=== PATIENT | female | born 1945 | race Caucasian/White ===

== ENCOUNTER 2017-10-31 18:57 | Emergency (ER) | payer MEDICARE, BC ==
[~2017-10-31 18:57] MED LIST: Iopamidol 370 76% 100 ML VIAL ONE
[2017-10-31] MEDS ORDERED: Ondansetron HCl/PF 4 MG/2 ML Vial ONE (19:38)
[2017-10-31 19:45] LABS: #Basophils 0.1 thou/uL (0.0-0.2); #Lymphocytes 1.7 thou/uL (1.20-3.40); #Neutrophils 7.3 thou/uL (1.40-6.50); %Basophils 0.8 % (0.0-1.0); %Eosinophils 0.2 % (0.0-10.0); %Lymphocytes 16.7 % (21.0-51.0); %Monocytes 9.5 % (0.0-10.0); %Neutrophils 72.8 % (42.0-75.0); Hemoglobin 14.4 g/dL (12.0-16.0); Mean Corpuscular HGB CONC 35.3 g/dL (32.0-36.0); Mean Corpuscular Hemoglobin 33.9 pg (27.0-31.0); Mean Platelet Volume 9.3 fL (7.4-10.4); Platelet Count 196 thou/uL (130-400); RBC Distribution Width 11.2 % (11.5-14.5); Red Blood Cell (RBC) Count 4.23 mill/uL (4.20-5.40)
[2017-10-31 19:47] LABS: Bilirubin Negative (Negative); Blood, Urine Negative (Negative); Clarity Hazy (Clear); Glucose, Urine (Dipstick) Negative (Negative); Leukocyte Trace (Negative); Nitrite Negative (Negative); Protein, Urine (Dipstick) Negative (Neg-Trace); Specific Gravity, Urine 1.008 (1.002-1.036); Urobilinogen 0.2 mg/dL (0.2-1.0)
[2017-10-31 19:55] LABS: Bacteria/HPF 1+ HPF (None Seen); RBC/HPF None Seen HPF (0-3); WBC/HPF 0-3 HPF (0-3)
[2017-10-31 19:58] LABS: ALT (SGPT) 24 U/L (8-55); AST (SGOT) 25 U/L (5-34); Alkaline Phosphatase 65 U/L (40-150); Anion Gap 15 mmol/L (10-20); BUN (Urea Nitrogen) 11 mg/dL (9.8-20.1); Bilirubin, Total 0.7 mg/dL (0.2-1.2); Calc. Creatinine Clearance 0 mL/min (70-130); Calcium 9.6 mg/dL (7.8-10.44); Carbon Dioxide 25 mmol/L (23-31); Chloride 102 mmol/L (98-107); Estimated GFR-MDRD 85; Globulin 2.6 g/dL (2.4-3.5); Glucose 114 mg/dL (83-110); Lipase 21 U/L (8-78); Potassium 3.6 mmol/L (3.5-5.1); Protein, Total 6.6 g/dL (6.0-8.3); Sodium 138 mmol/L (136-145)
--- NOTE | 2017-10-31 20:55 | CT ---
CONTRAST ENHANCED CT IMAGES ABDOMEN AND PELVIS 10/31/17 Comparison made to previous exam from 07/14/16. Noncontrast enhanced CT images of the abdomen and pelvis demonstrate the lung bases to be unremarkabl e. A small granuloma is seen in the right middle lobe. No evidence of free intraperitoneal air seen. The liver contains a cyst in the left hepatic lobe. Additional medial left hepatic lobe cyst also see n. These are unchanged since the previous exam. The spleen contains a small splenic cyst. This is also stable. The stomach is unremarkable. The pancr eas is unremarkable. The gallbladder has been surgically removed. Adrenal glands and kidneys are unre markable. No dilated loops of small bowel seen. There is an approximately 6.1 cm area of abnormal thickening with surrounding inflammatory change in the sigmoid colon. This is compatible with possible sigmoid colonic mass versus area of diverticulit is and secondary bowel thickening and inflammatory change. This appears to have been present on the p rashid's previous CT from 07/14/16 but was slightly longer in length. Correlate with direct visualizati on. IMPRESSION: Segmental areas of sigmoid colonic thickening. Differential diagnosis includes diverticulitis and sec ondary pericolonic fat stranding versus sigmoid colonic malignancy. POS: [facility]
[2017-10-31] MEDS ORDERED: Acetaminophen 500 MG TAB ONE (21:05)
== END 2017-10-31 21:10 | disposition home or self-care (01) ==
LOC: SCSER 18:57
DX: K57.32 Diverticulitis of large intestine without perforation or abscess without bleeding (principal); I10 Essential (primary) hypertension
CPT/HCPCS: 74177; 80053; 81003; 81015; 83690; 85025; 96374; J2405

== ENCOUNTER 2018-08-23 09:53 | Outpatient (CLI) | payer MEDICARE, BC ==
--- NOTE | 2018-08-23 10:37 | ULT ---
US Thyroid STANDARD HISTORY: Thyroid nodule COMPARISON: 07/02/2017 exam. FINDINGS: Real-time imaging of the right and left lobes of the gland were performed. The right lobe m easures 1.6 x 1.7 x 3.5 cm. The left lobe measures 1.1 x 1.2 x 2.9 cm. Bilateral subcentimeter thyroid nodules are identified. The 2 largest on the right are cystic lesions involving the mid and lower pole region of the right lobe measuring in the 7 to 8 mm range and on the left side there is a 7 mm solid hypoechoic nodule which appears stable as compared to the previou s exam. IMPRESSION: Small thyroid nodules stable.
== END 2018-08-23 09:54 | disposition home or self-care (01) ==
LOC: SCSULT 09:53
PROVIDERS: ATTEND Specialist
DX: E04.2 Nontoxic multinodular goiter (principal)
CPT/HCPCS: 76536

== ENCOUNTER 2018-10-15 08:39 | Emergency (ER) | payer MEDICARE, BC ==
[2018-10-15] MEDS ORDERED: Iopamidol 370 76% 100 ML VIAL ONE (09:00)
[2018-10-15] MEDS ORDERED: Nitroglycerin 2% Ointment 1 INCH/1 GM Packet ONE (09:15)
[2018-10-15 09:19] LABS: #Lymphocytes 1.2 thou/uL (1.20-3.40); #Monocytes 0.7 thou/uL (0.11-0.59); #Neutrophils 6.3 thou/uL (1.40-6.50); %Basophils 0.6 % (0.0-1.0); %Eosinophils 0.4 % (0.0-10.0); %Lymphocytes 14.4 % (21.0-51.0); %Monocytes 8.1 % (0.0-10.0); %Neutrophils 76.5 % (42.0-75.0); Hemoglobin 16.4 g/dL (12.0-16.0); Mean Corpuscular Hemoglobin 32.5 pg (27.0-31.0); Mean Corpuscular Volume 98.3 fL (78.0-98.0); Mean Platelet Volume 8.4 fL (7.4-10.4); Platelet Count 281 thou/uL (130-400); RBC Distribution Width 11.6 % (11.5-14.5); Red Blood Cell (RBC) Count 5.05 mill/uL (4.20-5.40); White Blood Cell (WBC) Count 8.2 thou/uL (4.8-10.8)
[2018-10-15 09:39] LABS: ALT (SGPT) 20 U/L (8-55); AST (SGOT) 27 U/L (5-34); Albumin 4.2 g/dL (3.4-4.8); Alkaline Phosphatase 55 U/L (40-150); Anion Gap 17 mmol/L (10-20); BUN (Urea Nitrogen) 7 mg/dL (9.8-20.1); Bilirubin, Total 0.8 mg/dL (0.2-1.2); CK (CPK) 79 U/L (29-168); Calc. Creatinine Clearance 0 mL/min (70-130); Calcium 10.1 mg/dL (7.8-10.44); Carbon Dioxide 24 mmol/L (23-31); Chloride 103 mmol/L (98-107); Estimated GFR-MDRD 82; Globulin 2.9 g/dL (2.4-3.5); Glucose 108 mg/dL (83-110); Potassium 3.6 mmol/L (3.5-5.1); Protein, Total 7.1 g/dL (6.0-8.3); Sodium 140 mmol/L (136-145)
[2018-10-15] MEDS ORDERED: Ketorolac Tromethamine 30 MG/ML VIAL ONE (11:01)
--- NOTE | 2018-10-15 11:15 | CT ---
CTA CHEST WITH IV CONTRAST AND 3D POSTPROCESSING CTA ABDOMEN WITH IV CONTRAST AND 3D POSTPROCESSING CTA PELVIS WITH IV CONTRAST AND 3D POSTPROCESSING CT CHEST WITHOUT IV CONTRAST CT ABDOMEN WITHOUT IV CONTRAST: HISTORY: Chest pain. FINDINGS: There are vascular calcifications without evidence of aneurysmal dilatation of the thoracoabdominal a lavern. The aorta is well opacified without aneurysm or dissection. The SMA, WILFREDO, celiac axis, and angelina l arteries demonstrate good flow. There is mild stenosis at the origin of the left renal artery. No pleural or pericardial effusions seen. No pneumothoraces or focal areas of consolidation identifie d. There is a calcified granuloma in the right lower lobe. No free air or free fluid seen in the abdomen or pelvis. There are cysts in the liver measuring 2.3 a nd 1.4 cm, respectively. The pancreas, adrenal glands, and kidneys are normal. There are calcified gr anulomas in the spleen. The patient is post cholecystectomy. The small bowel loops are not abnormally dilated. The patient appears to be post hysterectomy. There is colonic diverticulosis without divert iculitis. There are degenerative changes in the thoracolumbar spine. IMPRESSION: 1. No evidence of aortic aneurysm or dissection. 2. Hepatic cysts. 3. Colonic diverticulosis. 4. Old granulomatous disease. POS: [facility]
== END 2018-10-15 11:08 | disposition home or self-care (01) ==
LOC: SCSER 08:39
DX: S30.1XXA Contusion of abdominal wall, initial encounter (principal); S20.229A Contusion of unspecified back wall of thorax, initial encounter; S30.0XXA Contusion of lower back and pelvis, initial encounter; I10 Essential (primary) hypertension; W06.XXXA Fall from bed, initial encounter
CPT/HCPCS: 71275; 80053; 82550; 84484; 85025; 93005; J1885; Q9967

== ENCOUNTER 2023-11-15 11:25 | Outpatient (CLI) | payer MEDICARE | END 2023-11-15 11:26 | disposition home or self-care (01) | LOC: SCSMRI 11:25 | PROVIDERS: ATTEND Psychiatry & Neurology Neurology | DX: F03.90 Unspecified dementia, unspecified severity, without behavioral disturbance, psychotic disturbance, mood disturbance, and anxiety (principal); I73.89 Other specified peripheral vascular diseases; G93.89 Other specified disorders of brain | CPT/HCPCS: 70553; 76376 ==